=== PATIENT | female | born 2000 | race Caucasian/White ===

== ENCOUNTER 2020-01-09 13:54 | Emergency (ER) | payer BC, OTHER, SELFPAY ==
[2020-01-09 14:01] VITALS: BP 131/95; PULSE 101; RESP 19; TEMP 36.8; O2SAT 100
--- NOTE | 2020-01-09 14:18 | ED.HA ---
HPI - Headache General Chief Complaint: Headache Stated Complaint: headache x 2 weeks Time Seen by Provider: 01/09/20 14:15 Source: patient Mode of arrival: ambulatory Limitations: no limitations History of Present Illness HPI Narrative: A 19 y/o female pt presents to the ED with c/o constant migraine x 2 weeks. Pt states she has a Hx of migraines x 3 months. She states that she used to get a migraine that felt like a dull ache every evening, but she was able to sleep them off. Pt states her migraines now consist of a sharp, stabbing pain, that she describes as feeling like she is being hit with a hammer in her occipital and temporal regions. She notes trying to sleep them off, taking Excedrin Migraine, and Tylenol with no relief. Pt states she has her first appointment with her new PCP on Saturday, but she is in too much pain to wait. She reports nausea and photophobia, but denies any fever, recent illness, visual changes or flashes, or change in food or liquid intake. Pt rates her pain as a 6/10 and has no significant PMHx or NKA. MD elicited complaint: migraine Pertinent past history: migraines (x 3 months) Onset (ago): week(s) (2) Onset description: gradually Location: temporal and occipital Pain scale (0-10): 6 Quality & Timing: sharp, constant, different than previous headaches and other (stabbing) Associated symptoms: nausea and photophobia Treatments prior to arrival: acetaminophen and migraine medication (Excedrin) Related Data Home Medications Medication Instructions Recorded Confirmed etonogestrel-ethinyl estradiol vag ring VAGINAL 01/09/20 [NuvaRing] Allergies Allergy/AdvReac Type Severity Reaction Status Date / Time No Known Allergies Allergy Verified 01/09/20 14:04 Review of Systems Review of Systems: All systems reviewed & are unremarkable except as noted in HPI and below Constitutional: Constitutional: Denies fever(s) Eyes: Eyes: Denies change in vision, Denies seeing flashes and Reports photophobia Gastrointestinal: Gastrointestinal: Reports nausea and Denies other (changes in food or liquid intake) Neurologic: Reports headache(s) (sharp, stabbing migraine) PMFSH Past Medical History Medical History (Updated 01/09/20 @ 15:33 by Arya Cherry MD) Anxiety Depression Hx of tonsillitis Surgical History Surgical History (Updated 01/09/20 @ 15:07 by Ronn Hidalgo, TECH) No significant past surgical history Social History Social History Gender identity (if verbalized by the patient): Male Exam Const: General: healthy appearing and no acute distress Nutritional Appearance: well nourished HENMT: Mouth: Yes lip normal and Yes moist mucous membranes Eyes: Conjunctivae: conjunctivae normal Pupils: Equal, round and reactive pupils present Resp: Effort & Inspection: normal respiratory effort Auscultation: clear to auscultation bilaterally Cardio: Rate: regular rate Rhythm: regular rhythm Heart sounds: no murmurs GI: GI Palp: Yes Soft to palpation and No Tenderness to palpation present (GI) Auscultation: normal bowel sounds Back/Spine/Pelvis: Other: Full ROM Skin: General skin exam: normal color, dry skin and other (warm) Neuro: General: patient oriented x3 (alert) Speech: normal speech Extrem: General: full ROM Psych: Mental Status: mental status grossly normal Affect: normal affect Course Vital Signs Vital signs: Vital Signs Temperature 36.8 C 01/09/20 14:01 Pulse Rate 101 H 01/09/20 14:01 Respiratory Rate 19 01/09/20 14:01 Blood Pressure 131/95 H 01/09/20 14:01 Pulse Oximetry 100 01/09/20 14:01 Temperature 36.8 C 01/09/20 14:01 Pulse Rate 62 01/09/20 15:40 Respiratory Rate 16 01/09/20 15:40 Blood Pressure 118/65 01/09/20 15:40 Pulse Oximetry 99 01/09/20 15:40 MDM - Headache MDM Narrative Medical decision making narrative: BYRD is similar to past BYRD. Intermittent and gradual in onset, unlikely to be SAH or
[2020-01-09] MEDS: KETOROLAC 30 MG/ML VIAL (*BKC) IV PUSH (14:49)
[2020-01-09] MEDS: METOCLOPRAMIDE HCL INJ 10 MG/2 ML VIAL IV PUSH (14:49)
[2020-01-09] MEDS: SODIUM CHLORIDE 0.9% IV 1,000 ML 999 ML IV CONT (14:49)
[2020-01-09 15:40] VITALS: BP 118/65; PULSE 62; RESP 16; O2SAT 99
== END 2020-01-09 15:43 | disposition home or self-care (01) ==
PROVIDERS: Emergency Provider Emergency Medicine; PCP Pediatrics
DX: G43.009 Migraine without aura, not intractable, without status migrainosus (principal)
CPT/HCPCS: 96361; 96374; 96375; 99284; J0131; J1100; J1200; J1885; J2765; J7030

== ENCOUNTER 2023-12-19 11:08 | Emergency (ER) | payer OTHER, BC, SELFPAY ==
--- NOTE | 2023-12-19 12:24 | ED.GENADULT ---
[facility] - General Adult General Chief complaint: Headache Stated complaint: Headache Time Seen by Provider: 12/19/23 12:04 Source: patient Mode of arrival: ambulatory Limitations: no limitations History of Present Illness HPI narrative: This is a 23-year-old female who presents to the ED with chief complaint of migraine headache for the past several days. She has a history of this feels that this is typical for migraines in character but does not usually last this long. She is taking her migraine medications to no avail. pain located initially in the right-sided head and now is bilateral. denies worst headache of life. Denies neck pain, fevers, chills, nausea, vomiting , numbness, weakness. Related Data Home Medications Medication Instructions Recorded Confirmed etonogestrel 0.12 mg-ethinyl vag ring vaginal 01/09/20 estradiol 0.015 mg/24 hr vaginal ring (NuvaRing) Allergies Allergy/AdvReac Type Severity Reaction Status Date / Time No Known Allergies Allergy Verified 01/09/20 14:04 Review of Systems Review of Systems: All systems as dictated in [facility] Past Medical History Medical History (Updated 12/19/23 @ 14:17 by Pineda Segundo PA-C) Anxiety Depression Hx of tonsillitis Surgical History Surgical History (Updated 01/09/20 @ 15:07 [facility] No significant past surgical history Social History Social History Gender identity (if verbalized by the patient): Male Exam Narrative: GENERAL: Well-appearing, well-nourished, and in no acute distress. HEAD: Normocephalic, atraumatic. EYES: PERRLA and EOMI. ENT: Nares clear, no rhinorrhea or epistaxis. Mucous membranes moist. Oropharynx without tonsillar hypertrophy exudate or other lesions. NECK: Supple. No adenopathy or masses. CHEST: No respiratory distress. Clear to auscultation. No wheezes rales or rhonchi HEART: Regular rate and rhythm. No murmur heard. Normal peripheral pulses. ABDOMEN: Soft, nontender, nondistended, normal active bowel sounds. MSK: Normal range of motion. No edema. SKIN: Warm, dry, no rash. NEURO: Alert and oriented x3. No focal deficits. PSYCH: Normal mood and affect. Course Vital Signs Vital signs: Vital Signs Temperature 97.8 F 12/19/23 12:58 Pulse Rate 89 12/19/23 12:58 Respiratory Rate 20 12/19/23 12:58 Blood Pressure 121/90 12/19/23 12:58 Pulse Oximetry 97 12/19/23 12:58 Oxygen Delivery Room Air 12/19/23 12:58 Temperature 97.8 F 12/19/23 12:58 Pulse Rate 64 12/19/23 14:24 Respiratory Rate 15 12/19/23 14:24 Blood Pressure 118/73 12/19/23 14:24 Pulse Oximetry 100 12/19/23 14:24 Oxygen Delivery Room Air 12/19/23 12:58 Medical Decision Making MDM Narrative Medical decision making narrative: This is a 23-year-old female who presents to the ED with chief complaint of migraine for the past several days. Vitals are normal. Neurologic exam fully intact. Physical exam normal. No meningeal signs. No red flag headache signs symptoms to Warrant emergent imaging. She was given headache cocktail and had full improvement after this. She feels ready to go home. Pt will be discharged in stable condition. Return precautions given and supportive measures discussed. Pt is understanding and agreeable with plan for discharge and follow-up with PCP/neuro Vital Signs Vital Signs: Vital Signs Temperature 97.8 F 12/19/23 12:58 Pulse Rate 89 12/19/23 12:58 Respiratory Rate 20 12/19/23 12:58 Blood Pressure 121/90 12/19/23 12:58 Pulse Oximetry 97 12/19/23 12:58 Oxygen Delivery Room Air 12/19/23 12:58 Temperature 97.8 F 12/19/23 12:58 Pulse Rate 64 12/19/23 14:24 Respiratory Rate 15 12/19/23 14:24 Blood Pressure 118/73 12/19/23 14:24 Pulse Oximetry 100 12/19/23 14:24 Oxygen Delivery Room Air 12/19/23 12:58 Lab Data Labs: UCG Bedside Result Negative
[2023-12-19 12:58] VITALS: BP 121/90; PULSE 89; RESP 20; TEMP 36.6; O2SAT 97
[2023-12-19] MEDS: SODIUM CHLORIDE 0.9% IV 1,000 ML 999 ML IV CONT (13:23)
[2023-12-19] MEDS: KETOROLAC 15 MG/ML VIAL (*BKC) IV PUSH (13:24)
[2023-12-19] MEDS: diphenhydrAMINE HCl INJ 50 MG/ML VIAL 25 MG IV PUSH (13:25)
[2023-12-19] MEDS: PROCHLORPERAZINE EDISYLATE 10 MG/2 ML VIAL IV PUSH (13:27)
[2023-12-19 14:24] VITALS: BP 118/73; PULSE 64; RESP 15; O2SAT 100
== END 2023-12-19 14:26 | disposition home or self-care (01) ==
PROVIDERS: Emergency Provider Physician Assistant; PCP Internal Medicine
DX: G43.909 Migraine, unspecified, not intractable, without status migrainosus (principal); Z97.5 Presence of (intrauterine) contraceptive device
CPT/HCPCS: 81025; 96361; 96374; 96375; 99284; J0780; J1200; J1885; J7030